=== PATIENT | female | born 1990 | race Caucasian/White ===

== ENCOUNTER 2016-09-11 14:34 | Emergency (ER) | payer OTHER ==
[2016-09-11] MEDS ORDERED: OXYCODONE HCL 5 MG TABLET PO ONE (14:43)
[2016-09-11 14:44] VITALS: BP 112/57; PULSE 78; TEMP 98.5
--- NOTE | 2016-09-11 14:46 | EDPRACDOC ---
- General Information Stated Complaint: LEFT RIB PAIN - TRIPPED OVER CURB Information Source: Patient Mode of Arrival: Car Home Medications: Home Medications Levothyroxine Sodium [Synthroid] 50 mcg PO DAILY 09/11/16 Oxycodone Immediate Release [Oxycodone Immediate Release (OxyIR)] 5 mg PO Q6H PRN #20 tab 09/11/16 Allergies/Adverse Reactions: Allergies Allergy/AdvReac Type Severity Reaction Status Date / Time amoxicillin Allergy Nausea/Vomi Verified 09/11/16 14:48 ting sulfamethoxazole Allergy Nausea/Vomi Verified 09/11/16 14:48 [From ] ting trimethoprim [From ] Allergy Nausea/Vomi Verified 09/11/16 14:48 ting - History of Present Illness Onset: CARE COORDINATION MANAGER HPI: PT STATES TRIPPED OVER CURB AND HIT LEFT ANTEROLATERAL RIBS. NOW C/O SHARP PAIN WITH MOVEMENT BREATHING COUGHING. Chest Wall Injury Location: Reports: Chest (LEFT ANTEROLATERAL) Context: Reports: Fall Pain Quality: Reports: Sharp, Stabbing Pain Severity: Reports: Moderate Pain Worsens With: Reports: Coughing, Breathing, Movement, Position, Other ( SITTING DOWN AND GETTING UP BENDING OVER) Shortness of Breath: Mild (DUE TO PAIN) Associated Signs and Symptoms: Reports: None ED Past Medical History - History Reviewed Yes Nurses notes reviewed and agree except as marked Travel Outside of [place] in the Last 3 Months?: No No Past Medical History: Yes Patient has no past medical history - Social Medical History ETOH: None Substance Abuse: None Lives With: Parents Lives In: Home EDM Review of Systems - Review of Systems ROS Negative Except as Marked: Yes All systems reviewed and were negative except as marked Constitutional: No Symptoms Reported. negative: Fever, Chills, Weakness, Fatigue, Loss of Appetite Eyes: No Symptoms Reported. negative: Redness, Blurred Vision, Double Vision, Discharge, Pain, Light Sensitive, Photophobia Ears: No Symptoms Reported. negative: Pain, Hearing Loss, Drainage, Ear Pulling Throat: No Symptoms Reported. negative: Pain, Swelling Nose: No Symptoms Reported. negative: Congestion, Bleeding, Discharge, Injection, Swelling, Deformity, Ecchymosis, Tender, Abrasion, Laceration Mouth: No Symptoms Reported. negative: Pain, Drooling Respiratory: No Symptoms Reported. negative: Cough, Brassy Cough, Barky Cough, Shortness of Breath, Wheezing, Hemoptysis Cardiovascular: No Symptoms Reported. negative: Chest Pain, Palpitations, Syncope, Edema, Orthopnea, PND, Skin Mottling, Cyanosis Gastrointestinal: No Symptoms Reported. negative: Pain, Constipation, Nausea, Vomiting, Diarrhea, Melena, Formula Intolerance Genitourinary: No Symptoms Reported. negative: Dysuria, Hematuria, Frequency, Discharge, Bleeding, Testicular Pain, Neurological: No Symptoms Reported. negative: Headache, Dizziness, Seizure, Numbness, Weakness, Speech Difficulty, Gait Difficulty Musculoskeletal: Chestwall (LEFT ANTEROLATERAL RIBS). negative: Arm, Ankle, Back, Elbow, Forearm, Femur, Foot, Hand, Hip, Knee, Leg, Neck, Pelvis, Ribs, Shoulder, Wrist Integumentary: No Symptoms Reported. negative: Itching, Rash, Bruising, Wound Allergic/Immunologic: No Symptoms Reported. negative: Hives, Itching Hematologic: No Symptoms Reported. negative: Lymphadenopathy, Easy Bruising, Easy Bleeding Endocrine: No Symptoms Reported. negative: Weight Gain, Weight Loss Psychiatric: No Symptoms Reported. negative: Anxiety, Depression, Hallucinations, Insomnia, Suicidal - Physical Exam Constitutional: No apparent distress, Alert (Awake) Oriented to: Time, Person, Place Last recorded Vital Signs: Oxygen Pulse Oxygen Saturation O2 Device Oxygen Flow Rate Fraction of Inspired Oxygen ( FIO2) - HEENT Head: Normal ( normocephalic) Eye Exam: Normal (PERRL, EOMI, Sclera white) Oropharynx: Normal (Pharynx:Moist without exudate,Gums-no swelling) Tympanic Membrane: Normal ENT EAC: Normal TMJ: Normal Nose: No Symptoms Reported (septum midline) Neck: Normal (FROM, trachea at midline) - Respiratory/Cardiovascular Respiratory: Normal - CTA (BBS clear to auscultation without adventitious sounds ) Cardiovascular: Normal (RRR without murmur, gallop or rub) - GI Auscultation: Normal (NABS) Palpation: Normal (Soft,No rebound or guarding, non distended) Tenderness: Non tender Patton's Sign: Negative - Bladder: Normal - Musculoskeletal Back: Normal (Non-Tender) Extremities: Normal (Normal tone, Pulses 2+ No cyanosis or edema, FROM) - Integumentary Skin: Normal, Warm, Dry Lymphatics: Normal (no adenopathy) - Neurologic Memory Impaired: Normal Motor Function: Normal (Normal tone, Pulses 2+ No cyanosis or edema, FROM) Cranial Nerve: Normal (CN II-X11 intact sensation, strength 5/5) Cerebellar: Normal Mood Description: Normal Perception: Normal ED Chest Wall Pain Exam - Chest Wall Pain Chest: Tender (LEFT ANTEROLATERAL RIBS) - Differential Diagnosis Chest Wall Contusion, Pneumothorax, Rib Fracture - Diagnostic Imaging RIBS W/ CXR Image interpreted by: Radiologist IMPRESSION: Negative. Decision Time to Discharge: 15:27 - Departure Disposition: Home Condition: Stable Final Diagnosis: MECHANICAL FALL, CLINICAL LEFT RIB FRACTURE Instructions: Rib Fracture (ED) Education/Counseling Given To: Patient Education/Counseling Given Regarding: Diagnosis, Treatment, Prognosis, Follow Up Referrals: None,No Provider [Primary Care Provider] - One Week Prescriptions: Oxycodone Immediate Release [Oxycodone Immediate Release (OxyIR)] 5 mg PO Q6H PRN #20 tab PRN Reason: Pain Additional Instructions: TAKE ONE DEEP BREATH EVERY 15MINUTES TO PREVENT PNEUMONIA, RETURN FOR WORSE OR DIFFERENT SYMPTOMS
[2016-09-11 14:48] VITALS: BMI 26.6
--- NOTE | 2016-09-11 15:17 | DIRPT ---
CLINICAL DATA: Left anterior rib pain after fall. EXAM: LEFT RIBS AND CHEST - 3+ VIEW COMPARISON: None. FINDINGS: No fracture or other bone lesions are seen involving the ribs. There is no evidence of pneumothorax or pleural effusion. Both lungs are clear. Heart size and mediastinal contours are within normal limits. IMPRESSION: Negative. Electronically Signed By: Maryanne Mayorga M.D. On: 09/11/2016 15:14
== END 2016-09-11 15:35 | disposition home or self-care (01) ==
LOC: EDMC 14:34
DX: S22.32XA Fracture of one rib, left side, initial encounter for closed fracture (principal); W10.1XXA Fall (on)(from) sidewalk curb, initial encounter
CPT/HCPCS: 71101; 99283; J3490